=== PATIENT | male | born 1995 | race Two or more races ===

== ENCOUNTER 2021-03-22 09:30 | Emergency (ER) | payer OTHER ==
[2021-03-22 09:43] VITALS: BP 141/84; PULSE 101; TEMP 97.9; BMI 27.1
== END 2021-03-22 11:32 | disposition home or self-care (01) ==
LOC: JERFT 09:30 → JER 09:30 → JERFT 11:32
PROC: 0J9M0ZZ Drainage of Left Upper Leg Subcutaneous Tissue and Fascia, Open Approach (ICD-10-PCS; principal; 2021-03-22)
DX: L02.416 Cutaneous abscess of left lower limb (principal)
CPT/HCPCS: 99282-25